=== PATIENT | female | born 1990 | race Caucasian/White ===

== ENCOUNTER → 2023-09-05 13:27 | Outpatient (CLI) | payer OTHER, SELFPAY ==
--- NOTE | 2023-09-05 | DI.ECHO.S_ITS ---
[place] [facility]---------+ [facility] +---------+ : : [address] : [address] : : : : [id number] : : : : Phone: [phone]---------+ Echocardiogram Report + + :Name: VIVI DACOSTA Study Date: 09/05/2023 Height: 69 in : :[facility] ReadingLocation: Weight: 160 lb : : Gender: Female BSA: 1.9 m2 : :: 1990 Age: 32 yrs BP: 112/66 mmHg: :Reason For Study: Palpitations : :Ordering Physician: CAROLE, : :LEIGH Hurtado Performed By: Katelynn Brush : :Referring: LEIGH GARCIA : + + Interpretation Summary The ejection fraction is estimated to be 50-55%. Diastolic parameters suggest probable normal left ventricular diastolic function and normal filling pressures. The right ventricle is normal in size and function. No significant valvular abnormalities. Pulmonary artery pressures cannot be estimated because of the lack of a measurable TR jet velocity but the IVC suggests a CVP of around 3 mmHg. Procedure: A two-dimensional transthoracic echocardiogram with color flow and Doppler was performed. The study quality was technically adequate. There is no prior echocardiogram noted for this patient. The patient was in normal sinus rhythm during the exam. Left Ventricle: The left ventricle is normal in size. The ejection fraction is estimated to be 50-55%. Diastolic parameters suggest probable normal left ventricular diastolic function and normal filling pressures. Right Ventricle: The right ventricle is normal in size and function. Atria: The left atrial size is normal. Right atrial size is normal. There is no Doppler evidence for an interatrial shunt. Mitral Valve: The mitral valve is normal. There is no mitral valve stenosis. There is trace mitral regurgitation. Aortic Valve: The aortic valve is trileaflet. The aortic valve opens well. There is no aortic valve stenosis. No aortic regurgitation is present. Tricuspid Valve: The tricuspid valve is normal. There is no tricuspid stenosis. There is trace tricuspid regurgitation. Pulmonary artery pressures cannot be estimated because of the lack of a measurable TR jet velocity but the IVC suggests a CVP of around 3 mmHg. Pulmonic Valve: The pulmonic valve is not well visualized. There is no pulmonic valvular stenosis. There is trace pulmonic regurgitation. Great Vessels: The aortic root is normal size. The ascending aorta is normal in size. The pulmonary artery is normal size. The IVC is of normal diameter and collapses greater than 50% with a sniff. This suggests a low right atrial pressure of 3 mm Hg. Pericardium/ Pleura There is no pericardial effusion. There is no pleural effusion. MMode/2D Measurements & Calculations LVIDd: 4.7 cm LVOT diam: 2.2 cm LVIDs: 2.7 cm Ao root diam: 3.0 cm FS: 42.6 % asc Aorta Diam: 2.7 cm IVSd: 1.0 cm LVPWd: 0.80 cm LV robertson. diameter/BSA (cm/m^2): 2.5 LV sys. diameter/BSA (cm/m^2): 1.4 LA A2 area: 13.5 cm2 RA long axis: 4.6 cm LA A4 area: 14.7 cm2 RA area: 8.2 cm2 LA length (vol): 5.0 cm RA vol: 12.4 ml LA vol: 33.9 ml RA : 6.6 ml/m2 LA vol index: 18.0 ml/m2 RVD1 (basal): 2.9 cm LVLs ap4: 6.3 cm LVLd ap2: 7.5 cm TAPSE_phl: 2.4 cm LVLs ap2: 6.3 cm Doppler Measurements & Calculations Ao V2 max: 149.5 cm/sec LVOT Max Edwar: 109.3 cm/sec Ao V2 mean: 104.0 cm/sec LV V1 max P.8 mmHg Ao max P.0 mmHg LV V1 VTI: 20.1 cm Ao mean P.0 mmHg REYNALDO(I,D): 2.5 cm2 Ao V2 VTI: 30.1 cm REYNALDO(V,D): 2.8 cm2 sev ratio: 0.67 REYNALDO indexed to BSA (cm^2/m^2): 1.3 MV E max edwar: 102.0 cm/sec TR max edwar: 176.0 cm/sec MV A max edwar: 71.6 cm/sec TR max P.4 mmHg MV E/A: 1.4 PA V2 max: 109.0 cm/sec Med Peak E' Edwar: 12.6 cm/sec PA V2 mean: 79.6 cm/sec E/E' med: 8.1 PA mean P.0 mmHg Lat Peak E' Edwar: 18.2 cm/sec PA pr(Accel): 5.2 mmHg E/E' lat: 5.6 E/e' average: 6.8 MV dec time: 0.16 sec SV(LVOT): 76.4 ml AV VR_phl: 0.73 REYNALDO(VTI)/BSA_phl: 1.4 Reading Physician:08:52 PM
--- NOTE | 2023-09-05 20:28 | DI.NM.S_ITS ---
DATE OF SERVICE: 09/05/2023 PROCEDURE: Exercise treadmill stress test without imaging. ORDERING PROVIDER: Leigh Garcia M.D. INDICATIONS: The patient is a 32-year-old female with palpitations and labile blood pressure with presyncope. FINDINGS: 1. The patient was able to exercise for 8 minutes, 36 seconds on a standard [place] protocol suggesting mildly impaired exercise capacity with an MAIK of +9%, achieving 10.1 METS. 2. She had a normal heart rate and blood pressure response to exercise, achieving a maximum heart rate of 159 BPM (85% of her predicted maximum). Her resting blood pressure was 110/65 with an appropriate increase to 158/40 at peak exercise. 3. She had no chest discomfort or anginal symptoms and stopped because of fatigue and dyspnea. 4. Her resting ECG shows sinus rhythm with normal ST segments. There are no significant ST-segment shifts or arrhythmias with stress. IMPRESSION: 1. Normal exercise treadmill stress test for ischemia. 2. Mildly impaired exercise capacity without angina or arrhythmias. She had a normal hemodynamic response to exercise. Helena Jillian - /nilda/ doc#: [id number]/job#: [id number] dd: 09/05/2023 17:16:00 dt: 09/05/2023 20:09:00 DICTATING MD/COPIES TO: Cam Peters MD; Leigh Garcia M.D. COPIES MNE: HAILEY;
== END ==
PROVIDERS: Referring Provider Internal Medicine Cardiovascular Disease; Visit Provider Internal Medicine Cardiovascular Disease
DX: R00.2 Palpitations (principal)
CPT/HCPCS: 93017; 93306